=== PATIENT | female | born 1965 | race Caucasian/White ===

== ENCOUNTER 2020-08-04 10:45 | Outpatient (CLI) | payer OTHER ==
[2020-08-05 02:13] LABS: SARS-CoV-2 PCR by NAA Not Detected (NotDetected)
== END 2020-08-04 10:46 | disposition home or self-care (01) ==
LOC: CSHLAB 10:45
PROVIDERS: ATTEND Internal Medicine Gastroenterology
DX: Z20.822 Contact with and (suspected) exposure to COVID-19 (principal); Z12.11 Encounter for screening for malignant neoplasm of colon
CPT/HCPCS: 87635; U0003; U0005

== ENCOUNTER 2020-08-07 07:58 | Day surgery (SDC) | payer MEDICARE, OTHER ==
[2020-08-05 15:30] VITALS: BMI 42.0
[2020-08-07] MEDS ORDERED: Lidocaine 1% MPF 2 ML VIAL ONE (08:43)
[2020-08-07] MEDS ORDERED: Lidocaine 1% PF 5 ML VIAL ONE (09:24)
[2020-08-07] MEDS ORDERED: PROPOFOL 40 ML ONE (09:24)
[2020-08-07] MEDS ORDERED: PROPOFOL 20 ML ONE ×3 (09:47→10:06)
== END 2020-08-07 11:50 | disposition home or self-care (01) ==
LOC: CSHSDC 07:58
PROVIDERS: ATTEND Internal Medicine Gastroenterology
DX: Z12.11 Encounter for screening for malignant neoplasm of colon (principal); D12.5 Benign neoplasm of sigmoid colon; D12.3 Benign neoplasm of transverse colon; K57.30 Diverticulosis of large intestine without perforation or abscess without bleeding; K64.9 Unspecified hemorrhoids; E66.9 Obesity, unspecified; E11.9 Type 2 diabetes mellitus without complications; E78.5 Hyperlipidemia, unspecified; I10 Essential (primary) hypertension; F41.8 Other specified anxiety disorders; R60.0 Localized edema
CPT/HCPCS: 88305; J2704

== ENCOUNTER 2023-02-01 08:20 | Outpatient (CLI) | payer OTHER, MEDICAID | END 2023-02-01 08:21 | disposition home or self-care (01) | LOC: CSHCT 08:20 | PROVIDERS: ATTEND Surgery | DX: G91.9 Hydrocephalus, unspecified (principal); Z98.2 Presence of cerebrospinal fluid drainage device | CPT/HCPCS: 70450; 75809 ==